=== PATIENT | male | born 1980 | race Hispanic/Latino ===

== ENCOUNTER 2020-12-17 08:25 | Outpatient (NON) | payer OTHER, SELFPAY ==
[2020-12-17 22:24] LABS: SARS-CoV-2 RNA PCR Negative
== END 2020-12-17 08:26 ==
LOC: ANHCOVIDDT 08:27
PROVIDERS: Visit Provider Physician Assistant
DX: B34.9 Viral infection, unspecified (principal); Z20.822 Contact with and (suspected) exposure to COVID-19
CPT/HCPCS: C9803; U0003; U0005

== ENCOUNTER 2023-04-07 16:15 | Emergency (ER) | payer OTHER, BC, SELFPAY ==
--- NOTE | ~2023-04-07 | CT_ITS ---
EXAMINATION: CT lumbar spine wo con DATE: 04/07/2023 18:43 INDICATION: Fall, low back pain . TECHNIQUE: Computed tomography (CT) of the lumbar spine was performed without intravenous contrast. A utomated exposure control and iterative reconstruction technique were employed. The dose-length produ ct was 1178.06 mGy-cm. COMPARISON: None. FINDINGS: 5 nonrib-bearing lumbar-type vertebral bodies. Pedicles intact. Normal vertebral body align ment. Vertebral body heights preserved. Disc spaces maintained. Normal facets and posterior elements. IMPRESSION: No acute fracture or traumatic malalignment in the lumbar spine. Reviewed, dictated and finalized at location K.
--- NOTE | ~2023-04-07 | CT_ITS ---
EXAMINATION: CT pelvis wo con DATE: 04/07/2023 18:43 INDICATION: Fall, sacral pain TECHNIQUE: Computed tomography (CT) of the pelvis was performed without intravenous contrast. Automat ed exposure control and iterative reconstruction technique were employed. The dose-length product was 696.03 mGy-cm. COMPARISON: CT abdomen pelvis 10/09/2018 FINDINGS: Normal mineralization. Multiple bone islands. Very subtle oblique fracture of the distal sa deon/sacrococcygeal junction with anterior cortical buckling versus callus. Given history of recent t rauma and pain and acute fracture is favored. No other fracture. No dislocation. Status post appendec andie. Enlarged prostate. IMPRESSION: Subtle, nondisplaced fracture of the distal sacrum/sacrococcygeal junction. Reviewed, dictated and finalized at location K.
[2023-04-07 16:59] VITALS: BP 128/77; PULSE 55; RESP 18; TEMP 36.6; O2SAT 100
--- NOTE | 2023-04-07 17:59 | ED.BACK ---
HPI - Back Pain/Injury General Chief Complaint: Back Pain/Injury <JOSE Avendaño Last Filed: 04/08/23 02:38> Stated Complaint: fall, back pain <JOSE Avendaño Last Filed: 04/08/23 02:38> Time Seen by Provider: 04/07/23 16:58 <JOSE Avendaño Last Filed: 04/08/23 02:38> History of Present Illness HPI Narrative: 42-year-old male reports for evaluation of low back pain x2 weeks after he had a mechanical fall 2 weeks ago. Patient states he was mowing the lawn and the grass was wet, he slipped and landed on his tailbone. He reports he has been taking Tylenol ibuprofen with some relief, however the pain has increasingly worsened over the past few days. He denies numbness, weakness or tingling of lower extremities, saddle anesthesia, fever, body aches or chills, IV drug use. Denies hitting his head, LOC, head pain or other injuries obtained during the fall. <JOSE Avendaño Last Filed: 04/08/23 02:38> Related Data Home Medications: Home Medications Medication Instructions Recorded Confirmed atorvastatin 20 mg tablet 11/20/19 metformin 500 mg tablet mg 11/20/19 <JSOE Avendaño Last Filed: 04/08/23 02:38> Allergies/Adverse Reactions: Allergies Allergy/AdvReac Type Severity Reaction Status Date / Time No Known Allergies Allergy Verified 11/20/19 13:49 <JOSE Avendaño Last Filed: 04/08/23 02:38> Review of Systems Review of Systems: CONSTITUTIONAL: Denies fever, chills EYES: Denies visual changes, redness, or discharge. ENT: Denies rhinorrhea, congestion, sore throat, or otalgia. CARDIOVASCULAR: Denies chest pain, palpitations, or edema. RESPIRATORY: Denies cough or dyspnea. GASTROINTESTINAL: Denies abdominal pain, nausea, vomiting, or diarrhea. GENITOURINARY: Denies dysuria or hematuria. SKIN: Denies rash or itching. MUSCULOSKELETAL: See HPI NEUROLOGIC: Denies headache, numbness, dizziness, or weakness. PSYCHIATRIC: Denies anxiety or depression. <Jennifer Abreu PA-C - Last Filed: 04/08/23 02:38> [facility] Past Medical History Medical History: Medical History Diabetes Hyperlipidemia <Jennifer Abreu PA-C - Last Filed: 04/08/23 02:38> Exam Narrative: GENERAL: Well-appearing, in no acute distress. Patient sitting in exam chair, pleasant and conversational. HEAD: Normocephalic NECK: Supple. No midline cervical spinous tenderness, step-offs or deformities. CHEST: No respiratory distress. Clear to auscultation, no adventitious breath sounds. HEART: Regular rate and rhythm. No murmur heard. Normal peripheral pulses. EXTREMITIES: Normal range of motion. No edema. No tenderness to bilateral lower extremities. Strength 5/5 to BLE. DP pulses 2+. Sensation intact bilaterally. No saddle anesthesia. Negative seated SLR bilaterally. BACK: Point midline tenderness to the lumbar and sacral spine. No paraspinous tenderness. No step-offs, deformities, ecchymosis or overlying skin changes. SKIN: Warm, dry, no rash. NEURO: No focal deficits. Alert and oriented x3. PSYCH: Normal mood and affect. <Jennifer Abreu PA-C - Last Filed: 04/08/23 02:38> Course AUDIO VISUAL AIDS DIRECTOR/PA Physician Supervision This is a was performed by both a physician and an APC. I performed all aspects of the MDM as documented w/ the following additions: 42-year-old presenting with tailbone pain after a fall. Found to have a nondisplaced fracture. Case was discussed with Neurosurgery and patient will be given outpatient follow-up. All questions answered. Patient in agreement w/ disposition. <Toi Goel MD - Last Filed: 04/17/23 21:12> Vital Signs Vital signs: Vital Signs Temperature 97.8 F 04/07/23 16:59 Pulse Rate 55 L 04/07/23 16:59 Respiratory Rate 18 04/07/23 16:59 Blood Pressure 128/77 04/07/23 16:59 Pulse Oximetry 100 04/07/23 16:59 Oxygen D
[2023-04-07] MEDS: HYDROcodone/acetaminophen (*CRX) 5-325 MG TABLET 1 TAB PO (18:06)
[2023-04-07] MEDS: CYCLOBENZAPRINE HCL 10 MG TABLET PO (18:07)
[2023-04-07 20:58] VITALS: BP 135/88; PULSE 80; RESP 20; O2SAT 100
== END 2023-04-07 20:59 | disposition home or self-care (01) ==
PROVIDERS: Emergency Provider Physician Assistant; PCP Physician Assistant
DX: S32.10XA Unspecified fracture of sacrum, initial encounter for closed fracture (principal); E78.5 Hyperlipidemia, unspecified; E11.9 Type 2 diabetes mellitus without complications; W01.0XXA Fall on same level from slipping, tripping and stumbling without subsequent striking against object, initial encounter; Y92.007 Garden or yard of unspecified non-institutional (private) residence as the place of occurrence of the external cause
CPT/HCPCS: 72131; 72192; 99284; A9270

== ENCOUNTER 2023-11-20 14:17 | Emergency (ER) | payer BC, SELFPAY ==
[2023-11-20 14:26] VITALS: BP 124/70; PULSE 65; RESP 16; TEMP 36.3; O2SAT 97
--- NOTE | 2023-11-20 14:58 | ED.URI ---
HPI - URI/Sore Throat General Chief Complaint: Upper Respiratory Infection Stated Complaint: cough,fever Time Seen by Provider: 11/20/23 14:58 Source: patient Mode of arrival: ambulatory Limitations: no limitations History of Present Illness HPI Narrative: 43-year-old male presents with for that of cough for 2 weeks. Reports short of breath after coughing. Fever last night. No shortness of breath at this time. Not taking any [id number] medications to treat his symptoms. All systems reviewed and negative except as noted above. Related Data Home Medications Medication Instructions Recorded Confirmed atorvastatin 20 mg tablet 11/20/19 metformin 500 mg tablet mg 11/20/19 lisinopril 10 mg tablet mg 11/20/23 11/20/23 Allergies Allergy/AdvReac Type Severity Reaction Status Date / Time No Known Allergies Allergy Verified 11/20/23 14:43 Review of Systems Review of Systems: CONSTITUTIONAL: Denies fever, chills, or sweats. EYES: Denies visual changes, redness, or discharge. ENT: Denies rhinorrhea, congestion, sore throat, or otalgia. CARDIOVASCULAR: Denies chest pain, palpitations, or edema. RESPIRATORY: Reports cough and dyspnea with coughing. GASTROINTESTINAL: Denies abdominal pain, nausea, vomiting, or diarrhea. GENITOURINARY: Denies dysuria or hematuria. SKIN: Denies rash or itching. MUSCULOSKELETAL: Denies back pain, joint pain, or myalgia. NEUROLOGIC: Denies headache, numbness, or weakness. PSYCHIATRIC: Denies anxiety or depression. All other systems reviewed are negative, except as documented in HPI. [facility] Past Medical History Medical History Diabetes Hyperlipidemia Comments At time of signature, agree with nursing past medical, surgical, social and family history. There is no relevant family history pertinent to the presenting complaint. Exam Narrative: GENERAL: This is a well-nourished, well-developed patient, in no apparent distress. HEAD: normocephalic, atraumatic. EYES: PERRL. Sclera clear/white. Vision is grossly intact. EARS: External ears normal, auditory canals clear and without drainage, TMs normal without perforation. Hearing grossly intact. NOSE: External nose normal with no obvious nasal discharge, nares without redness, no rhinorrhea. THROAT: Mucous membranes moist, posterior pharynx clear. NECK: Neck supple, non-tender without lymphadenopathy, masses or thyromegaly. CARDIOVASCULAR: Regular rate and rhythm without murmurs, gallops, or rubs. RESPIRATORY: Clear to auscultation. Breath sounds equal bilaterally. No wheezes, rales, or rhonchi. SKIN: warm, Dry, intact with no suspicious lesions or rash, good texture and turgor. NEURO: awake, alert, and oriented to person, place and time. There were no obvious focal neurologic abnormalities. EXTREMITIES: No joint tenderness, effusion, or edema noted. Course Course Level of Care: Express Care Visit Vital Signs Vital signs: Vital Signs Temperature 36.3 C L 11/20/23 14:26 Pulse Rate 65 11/20/23 14:26 Respiratory Rate 16 11/20/23 14:26 Blood Pressure 124/70 11/20/23 14:26 Pulse Oximetry 97 11/20/23 14:26 Oxygen Delivery Room Air 11/20/23 14:26 Temperature 36.3 C L 11/20/23 14:26 Pulse Rate 65 11/20/23 14:26 Respiratory Rate 16 11/20/23 14:26 Blood Pressure 124/70 11/20/23 14:26 Pulse Oximetry 97 11/20/23 14:26 Oxygen Delivery Room Air 11/20/23 14:26 reviewed MDM - URI/Sore Throat MDM Narrative Medical decision making narrative: Patient is aware of diagnosis, understands and agrees to treatment plan. Anticipatory guidance given. Patient agrees to follow-up as directed and is aware of reasons to seek care at the emergency department. Portions of this record may have been created with voice recognition software will treat with abx due to duration of symptoms. Discharge Plan Discharge Clinical Impression
== END 2023-11-20 15:07 | disposition home or self-care (01) ==
PROVIDERS: Emergency Provider Nurse Practitioner Family; PCP Physician Assistant
DX: R05.1 Acute cough (principal); E11.9 Type 2 diabetes mellitus without complications; E78.5 Hyperlipidemia, unspecified
CPT/HCPCS: 99213; G0463

== ENCOUNTER 2025-03-25 10:10 | Emergency (ER) | payer BC, SELFPAY ==
[2025-03-25 10:13] VITALS: BP 149/84; PULSE 59; RESP 18; TEMP 36.8; O2SAT 98
--- OUTSIDE RECORDS SUMMARY | 2025-03-25 11:18 | XMS_ITS | Data Portability ---
Author Organization JOSE MARTIN Hetal LOPES Address [address] [facility] [place] [address] Care Team Providers Care Associate Brand Manager Name Role Phone DIMITRI FAUSTIN Primary Care Provider Assessment Encounter Date Assessment Date Assessment LastModified by Organization Details LastModified Time 03/24/2024 03/24/2024 , [email or web address] Not availabl e 03/24/2024 14:56:26 Plan of Treatment Reminders Order Date Submit Date Provider Last Modified By Organization Details Last Modified Time Details Appointments ANY 15 2024 03:45P M CELIA CHANDRA Not available Not available Not available Lab CMP, serum or plasma 2023 024 ERIN SHAH, [address], [facility] [address], [place], [address], 11/28/2024 08:27:13 CBC w/ auto diff 2023 024 ERIN SHAH, [address], [address], [place], [address], 11/28/2024 08:27:15 lipid panel, serum 2023 024 ERIN SHAH, [address], [address], [place], [address], 11/28/2024 08:27:12 HbA1c (hemoglob in A1c), blood 2023 024 ERIN SHAH, [address], [address], [place], [address], 11/28/2024 08:27:14 PSA, total, serum or plasma 2023 024 ERIN [facility], [address], [address], [place], [address], 03/25/2024 13:10:47 lipid panel, serum 2023 024 ERIN [facility], [address], [address], [place], [address], 03/25/2024 13:10:45 CMP, serum or plasma 2023 024 ERIN [facility], [address], [address], [place], [address], 03/25/2024 13:10:45 albumin/c reatinine , mass ratio, urine 2023 024 ERIN [facility], [address], [address], [place], [address], 03/25/2024 13:10:44 HbA1c (hemoglob in A1c), blood 2023 024 ERIN [facility], [address], [address], [place], [address], 03/25/2024 13:10:46 HbA1c (hemoglob in A1c), blood 2022 023 [email or web address] In-Office Order, Internal Use Only DO Not Attach Compendium DO Not Attach Compendium, Do Not Delete/merge, [id number] 05/01/2023 15:12:26 lipid panel, serum 2022 023 ERIN [facility], [address], [address], [place], [address], 05/02/2023 16:16:26 CMP, serum or plasma 2022 023 ERIN [facility], [address], [address], [place], [address], 05/02/2023 16:16:27 albumin/c reatinine , mass ratio, urine 2022 023 [facility]IN [facility], [address], [address], [place], [address], 05/02/2023 16:16:25 HbA1c (hemoglob in A1c), blood 2021 022 [email or web address] In-Office Order, Internal Use Only DO Not Attach Compendium DO Not Attach Compendium, Do Not Delete/merge, [id number] 06/28/2022 15:09:50 hepatic function panel, serum 2021 022 ERIN [facility], [address], [address], [place], [address], 06/29/2022 14:10:42 hepatitis panel (A+B+C), acute, serum 2021 022 ERIN [facility], [address], [address], [place], [address], 06/29/2022 14:10:41 HIV 1 + 2, meaningfu l use set 2021 022 ERIN [facility], [address], [address], [place], [address], 06/29/2022 14:10:43 Referral gastroent erologist referral 2023 024 [email or web address] Gamal Felipe MD, [address] [facility] [address], [place], [address], 11/25/2024 17:19:10 diabetic ophthalmo logy referral 2022 023 [facility], [address], [place], [address], 07/19/2023 15:42:19 Procedures None recorded. Surgeries None recorded. Imaging None recorded. Medication Orders ibuprofen 800 mg tablet [address] [facility], [address] [place] [address], [id number], 11/25/2024 17:09:34 lisinopri l 10 mg tablet 2022 023 [facility], [address] [place] [address], [id number], 12/26/2023 16:33:09 metformin 500 mg tablet 2022 023 [facility], [address] [place] [address], [id number], 03/03/2024 16:42:40 atorvasta tin 20 mg tablet 2022 023 [facility], [address] [place] [address], [id number], 03/31/2024 16:39:00 metformin 500 mg tablet 2021 022 [facility], [address] [place] [address], [id number], 06/28/2022 15:01:16 lisinopri l 10 mg tablet 2021 022 [facility], [address] [place] [address], [id number], 06/28/2022 15:01:16 atorvasta tin 20 mg tablet 2021 022 [facility], [address] [place] [address], [id number], 06/28/2022 15:01:15 Patient TargetsNo targets recorded. Patient Instructions Encounter Date Encounter Id Patient Instructions Last Modified By Organization Details Last Modified Time 06/28/2022 [id number] A healthy lifestyle: care instructions [email or web address] Not available 06/28/2022 14:54:09 05/01/2023 [id number] tailbone injury: care instructions [email or web address] Not available 05/01/2023 15:12:26 03/24/2024 [id number] A healthy lifestyle: care instructions [email or web address] Not available 03/24/2024 12:26:31 11/25/2024 [id number] A healthy lifestyle: care instructions Not available 11/26/2024 11:51:46 Reason for Referral Diabetic Ophthalmology Refer ral for Diabetes mellitus Referring Physician: Dimitri Faustin Transcriptionist, Encounter Date: 05/01/2023 [employer] Therapist Referral for Screening for malignant neoplasm of colon Referring Physician: Dimitri Faustin Transcriptionist, Encounter Date: 11/25/2024 Results Created Date Observation Date Name Description Value Unit Range Abnormal Flag Note LastModifiedBy Organization Detail LastModifiedTime 06/28/20 22 06/28/2022 HAV, HBV, HCV interpretati on Commen t HBV Serol ogy Inter preta tion Chart ----- ----- ----- ----- ----- ----- ----- ----- ----- ----- ----- ----- ----- -- Inter preta tion HBsAg anti- HBs anti- HBc anti- HBc IgM ----- ----- ----- ----- ----- ----- ----- ----- ----- ----- ----- ----- ----- -- Dietrich - Cecilia te prese nt: + Cecilia te absen t: - Test not indic ated: TNI ----- ----- ----- ----- ----- ----- ----- ----- ----- ----- ----- ----- ----- -- Celestina ptibl e (baoe r infec caitlin and no evide nce - - - TNI of cristyi kinjal n) ----- ----- ----- ----- ----- ----- ----- ----- ----- ----- ----- ----- ----- -- Immun e due to natur al resol tori infec tion - + + TNI ----- ----- ----- ----- ----- ----- ----- ----- ----- ----- ----- ----- ----- -- Immun e due to vacci natio n - + - TNI ----- ----- ----- ----- ----- ----- ----- ----- ----- ----- ----- ----- ----- -- Acute Infec tion + - + + ----- ----- ----- ----- ----- ----- ----- ----- ----- ----- ----- ----- ----- -- Chron ic infec tion + - + - ----- ----- ----- ----- ----- ----- ----- ----- ----- ----- ----- ----- ----- -- Inter preta tion uncle ar* - - + +/- ----- ----- ----- ----- ----- ----- ----- ----- ----- ----- ----- ----- ----- -- *Mult iple possi bilit ies: resol tori infec tion (most commo n); false - posit geraldine anti- HBc ([facility] eptib le); low- level chron ic infec tion ; resol ving acute infec tion. Not Available [facility] ([facility]) [address] [place], [address], 06/29/2022 14:10:41 06/28/20 22 06/29/2022 HAV, HBV, HCV hep A Ab, total Positi ve negati ve abnormal Not Available [facility] ([facility]) [address] [place], [address], 06/29/2022 14:10:41 06/28/20 22 06/29/2022 HAV, HBV, HCV hep A Ab, IgM Negati ve negati ve Not Available [facility] ([facility]) [address] [place], [address], 06/29/2022 14:10:41 06/28/20 22 06/29/2022 HAV, HBV, HCV HBsAg screen Negati ve negati ve Not Available [facility] ([facility]) [address] [place], [address], 06/29/2022 14:10:41 06/28/20 22 06/29/2022 HAV, HBV, HCV hep B surface Ab, qual Non Reacti ve Non React geraldine: Incon siste nt with immun ity, less than 10 mIU/m L React geraldine: Consi stent with immun ity, great er than 9.9 mIU/m L Not Available [facility] ([facility]) [address] [place], [address], 06/29/2022 14:10:41 06/28/20 22 06/29/2022 HAV, HBV, HCV hep B core Ab, tot Negati ve negati ve Not Available [facility] ([facility]) [address] [facility], [place], [address], 06/29/2022 14:10:41 06/28/20 22 06/29/2022 HAV, HBV, HCV rfx to hbc IgM Commen t Refle x crite todd was not met. Not Available [facility] ([facility]) [address] [facility], [place], [address], 06/29/2022 14:10:41 06/28/20 22 06/29/2022 HAV, HBV, HCV HCV Ab <0.1 s/co_ ratio 0.0-0. 9 Not Available [facility] ([facility]) [address] [facility], [place], [address], 06/29/2022 14:10:41 06/28/20 22 06/29/2022 HAV, HBV, HCV interpretati on: Commen t Negat geraldine Not infec caitlin with HCV, unles s recen t infec tion is suspe cted or other evide nce exist s to indic ate HCV infec tion. Not Available [facility] ([facility]) [address] [facility], [place], [address], 06/29/2022 14:10:41 06/28/20 22 06/29/2022 HEPAT IC FUNCT ION PANEL (7) protein, total 7.2 g/dL 6.0-8. 5 Not Available [facility] ([facility]) [address] [place], [address], 06/29/2022 14:10:42 06/28/20 22 06/29/2022 HEPAT IC FUNCT ION PANEL (7) albumin 4.7 g/dL 4.0-5. 0 Not Available [facility] ([facility]) [address] [place], [address], 06/29/2022 14:10:42 06/28/20 22 06/29/2022 HEPAT IC FUNCT ION PANEL (7) bilirubin, total 0.6 mg/dL 0.0-1. 2 Not Available [facility] ([facility]) [address] [place], [address], 06/29/2022 14:10:42 06/28/20 22 06/29/2022 HEPAT IC FUNCT ION PANEL (7) bilirubin, direct 0.16 mg/dL 0.00-0 .40 Not Available [facility] ([facility]) [address] [place], [address], 06/29/2022 14:10:42 06/28/20 22 06/29/2022 HEPAT IC FUNCT ION PANEL (7) alkaline phosphatase 94 IU/L 44-121 Not Available [facility] ([facility]) [address] [place], [address], 06/29/2022 14:10:42 06/28/20 22 06/29/2022 HEPAT IC FUNCT ION PANEL (7) AST (SGOT) 37 IU/L 0-40 Not Available [facility] ([facility]) [address] [place], [address], 06/29/2022 14:10:42 06/28/20 22 06/29/2022 HEPAT IC FUNCT ION PANEL (7) ALT (SGPT) 80 IU/L 0-44 above high normal Not Available [facility] ([facility]) [address] [place], [address], 06/29/2022 14:10:42 06/28/20 22 06/29/2022 HIV AB/P2 4 AG WITH REFLE X HIV Ab/P24 Ag screen Non Reacti ve non reacti ve HIV Negat geraldine HIV-1 /HIV- 2 antib odies and HIV-1 p24 antig en were NOT detec caitlin. There is no labor atory evide nce of HIV infec tion. Not Available [facility] ([facility]) [address] [place], [address], 06/29/2022 14:10:43 06/28/20 22 06/28/2022 HbA1c (hemo globi n A1c), blood HbA1c 7.2% Not Available In-Office Order Internal Use Only DO Not Attach Compendium DO Not Attach Compendium, Do Not Delete/merge, [id number] 06/28/2022 14:35:05 05/01/20 23 05/02/2023 ALBUM IN/CR EATIN INE RATIO ,URIN E creatinine, urine - mg/dL Test not perfo rmed. No urine speci men recei tori. Not Available [facility] ([facility]) [address] [place], [address], 05/02/2023 16:16:25 05/01/20 23 05/02/2023 ALBUM IN/CR EATIN INE RATIO ,URIN E albumin, urine - Test not perfo rmed Not Available [facility] ([facility]) [address] [place], [address], 05/02/2023 16:16:25 05/01/20 23 05/02/2023 LIPID PANEL cholesterol, total 170 mg/dL 100-19 9 Not Available [facility] ([facility]) [address] [place], [address], 05/02/2023 16:16:26 05/01/20 23 05/02/2023 LIPID PANEL triglyceride s 417 mg/dL 0-149 above high normal Not Available [facility] ([facility]) [address] [place], [address], 05/02/2023 16:16:26 05/01/20 23 05/02/2023 LIPID PANEL HDL cholesterol 36 mg/dL >39 below low normal Not Available [facility] ([facility]) [address] [place], [address], 05/02/2023 16:16:26 05/01/20 23 05/02/2023 LIPID PANEL VLDL cholesterol amrit 65 mg/dL 5-40 above high normal Not Available [facility] ([facility]) [address] [place], [address], 05/02/2023 16:16:26 05/01/20 23 05/02/2023 LIPID PANEL LDL chol calc ([facility]) 69 mg/dL 0-99 Not Available [facility] ([facility]) [address] [place], [address], 05/02/2023 16:16:26 05/01/20 23 05/02/2023 COMP. METAB OLIC PANEL (14) glucose 199 mg/dL 70-99 above high normal Not Available [facility] ([facility]) [address] [place], [address], 05/02/2023 16:16:27 05/01/20 23 05/02/2023 COMP. METAB OLIC PANEL (14) BUN 17 mg/dL 6-24 Not Available [facility] ([facility]) [address] [place], [address], 05/02/2023 16:16:27 05/01/20 23 05/02/2023 COMP. METAB OLIC PANEL (14) creatinine 0.46 mg/dL 0.76-1 .27 below low normal Not Available [facility] ([facility]) [address] [place], [address], 05/02/2023 16:16:27 05/01/20 23 05/02/2023 COMP. METAB OLIC PANEL (14) eGFR 133 mL/mi n/1.7 3 >59 Not Available [facility] ([facility]) [address] [place], [address], 05/02/2023 16:16:27 05/01/20 23 05/02/2023 COMP. METAB OLIC PANEL (14) BUN/creatini ne ratio 37 9-20 above high normal Not Available [facility] ([facility]) [address] [place], [address], 05/02/2023 16:16:27 05/01/20 23 05/02/2023 COMP. METAB OLIC PANEL (14) sodium 138 mmol/ L 134-14 4 Not Available [facility] ([facility]) [address] [facility] [place], [address], 05/02/2023 16:16:27 05/01/20 23 05/02/2023 COMP. METAB OLIC PANEL (14) potassium 4.3 mmol/ L 3.5-5. 2 Not Available [facility] ([facility]) [address] [facility] [place], [address], 05/02/2023 16:16:27 05/01/20 23 05/02/2023 COMP. METAB OLIC PANEL (14) chloride 102 mmol/ L 96-106 Not Available [facility] ([facility]) [address] [facility] [place], [address], 05/02/2023 16:16:27 05/01/20 23 05/02/2023 COMP. METAB OLIC PANEL (14) carbon dioxide, total 19 mmol/ L 20-29 below low normal Not Available [facility] ([facility]) [address] [facility] [place], [address], 05/02/2023 16:16:27 05/01/20 23 05/02/2023 COMP. METAB OLIC PANEL (14) calcium 9.4 mg/dL 8.7-10 .2 Not Available [facility] ([facility]) [address] [facility] [place], [address], 05/02/2023 16:16:27 05/01/20 23 05/02/2023 COMP. METAB OLIC PANEL (14) protein, total 7.0 g/dL 6.0-8. 5 Not Available [facility] ([facility]) [address] [facility] [place], [address], 05/02/2023 16:16:27 05/01/20 23 05/02/2023 COMP. METAB OLIC PANEL (14) albumin 4.5 g/dL 4.0-5. 0 Not Available [facility] ([facility]) [address] [facility], [place], [address], 05/02/2023 16:16:27 05/01/20 23 05/02/2023 COMP. METAB OLIC PANEL (14) globulin, total 2.5 g/dL 1.5-4. 5 Not Available [facility] ([facility]) [address] [facility], [place], [address], 05/02/2023 16:16:27 05/01/20 23 05/02/2023 COMP. METAB OLIC PANEL (14) A/G ratio 1.8 1.2-2. 2 Not Available [facility] ([facility]) [address] [facility], [place], [address], 05/02/2023 16:16:27 05/01/20 23 05/02/2023 COMP. METAB OLIC PANEL (14) bilirubin, total 0.4 mg/dL 0.0-1. 2 Not Available [facility] ([facility]) [address] [facility], [place], [address], 05/02/2023 16:16:27 05/01/20 23 05/02/2023 COMP. METAB OLIC PANEL (14) alkaline phosphatase 96 IU/L 44-121 Not Available [facility] ([facility]) [address] [facility], [place], [address], 05/02/2023 16:16:27 05/01/20 23 05/02/2023 COMP. METAB OLIC PANEL (14) AST (SGOT) 18 IU/L 0-40 Not Available [facility] ([facility]) [address] [facility], [place], [address], 05/02/2023 16:16:27 05/01/20 23 05/02/2023 COMP. METAB OLIC PANEL (14) ALT (SGPT) 27 IU/L 0-44 Not Available [facility] ([facility]) [address] [facility], [place], [address], 05/02/2023 16:16:27 05/01/20 23 05/02/2023 SPECI MEN STATU S REPOR T specimen status report TNP Test not perfo rmed. No urine speci men recei tori. TEST: [id number] Album in/Cr eatin ine Ratio ,Urin e Not Available [facility] ([facility]) [address] [facility], [place], [address], 05/02/2023 16:16:25 05/01/20 23 05/01/2023 HbA1c (hemo globi n A1c), blood HbA1c 7.2% Not Available In-Office Order Internal Use Only DO Not Attach Compendium DO Not Attach Compendium, Do Not Delete/merge, [id number] 05/01/2023 14:53:47 03/24/20 24 03/25/2024 ALBUM IN/CR EATIN INE RATIO ,URIN E creatinine, urine 153.8 mg/dL notest ab. Not Available [facility] ([facility]) [address] [facility], [place], [address], 03/25/2024 13:10:44 03/24/20 24 03/25/2024 ALBUM IN/CR EATIN INE RATIO ,URIN E albumin, urine 12.6 ug/mL notest ab. Not Available [facility] ([facility]) [address] [facility], [place], [address], 03/25/2024 13:10:44 03/24/20 24 03/25/2024 ALBUM IN/CR EATIN INE RATIO ,URIN E alb/creat ratio 8 mg/g_ creat 0-29 Salma l: 0 - 29 Moder ately incre ased: 30 - 300 Sever jackson incre ased: >300 Not Available [facility] ([facility]) [address] [facility], [place], [address], 03/25/2024 13:10:44 03/24/20 24 03/25/2024 LIPID PANEL cholesterol, total 132 mg/dL 100-19 9 Not Available [facility] ([facility]) [address] [place], [address], 03/25/2024 13:10:45 03/24/20 24 03/25/2024 LIPID PANEL triglyceride s 114 mg/dL 0-149 Not Available [facility] ([facility]) [address] [place], [address], 03/25/2024 13:10:45 03/24/20 24 03/25/2024 LIPID PANEL HDL cholesterol 40 mg/dL >39 Not Available [facility] ([facility]) [address] [place], [address], 03/25/2024 13:10:45 03/24/20 24 03/25/2024 LIPID PANEL VLDL cholesterol amrit 21 mg/dL 5-40 Not Available [facility] ([facility]) [address] [place], [address], 03/25/2024 13:10:45 03/24/20 24 03/25/2024 LIPID PANEL LDL chol calc ([facility]) 71 mg/dL 0-99 Not Available [facility] ([facility]) [address] [place], [address], 03/25/2024 13:10:45 03/24/20 24 03/25/2024 COMP. METAB OLIC PANEL (14) glucose 147 mg/dL 70-99 above high normal Not Available [facility] ([facility]) [address] [place], [address], 03/25/2024 13:10:45 03/24/20 24 03/25/2024 COMP. METAB OLIC PANEL (14) BUN 11 mg/dL 6-24 Not Available [facility] ([facility]) [address] [place], [address], 03/25/2024 13:10:45 03/24/20 24 03/25/2024 COMP. METAB OLIC PANEL (14) creatinine 0.76 mg/dL 0.76-1 .27 Not Available [facility] ([facility]) [address] [facility], [place], [address], 03/25/2024 13:10:45 03/24/20 24 03/25/2024 COMP. METAB OLIC PANEL (14) eGFR 114 mL/mi n/1.7 3 >59 Not Available [facility] ([facility]) [address] [facility], [place], [address], 03/25/2024 13:10:45 03/24/20 24 03/25/2024 COMP. METAB OLIC PANEL (14) BUN/creatini ne ratio 14 9-20 Not Available [facility] ([facility]) [address] [facility], [place], [address], 03/25/2024 13:10:45 03/24/20 24 03/25/2024 COMP. METAB OLIC PANEL (14) sodium 138 mmol/ L 134-14 4 Not Available [facility] ([facility]) [address] [facility], [place], [address], 03/25/2024 13:10:45 03/24/20 24 03/25/2024 COMP. METAB OLIC PANEL (14) potassium 4.5 mmol/ L 3.5-5. 2 Not Available [facility] ([facility]) [address] [facility], [place], [address], 03/25/2024 13:10:45 03/24/20 24 03/25/2024 COMP. METAB OLIC PANEL (14) chloride 103 mmol/ L 96-106 Not Available [facility] ([facility]) [address] [facility], [place], [address], 03/25/2024 13:10:45 03/24/20 24 03/25/2024 COMP. METAB OLIC PANEL (14) carbon dioxide, total 22 mmol/ L Not Available [facility] ([facility]) [address] [facility], [place], [address], 03/25/2024 13:10:45 03/24/20 24 03/25/2024 COMP. METAB OLIC PANEL (14) calcium 9.4 mg/dL 8.7-10 .2 Not Available [facility] ([facility]) [address] [facility], [place], [address], 03/25/2024 13:10:45 03/24/20 24 03/25/2024 COMP. METAB OLIC PANEL (14) protein, total 7.2 g/dL 6.0-8. 5 Not Available [facility] ([facility]) [address] [facility], [place], [address], 03/25/2024 13:10:45 03/24/20 24 03/25/2024 COMP. METAB OLIC PANEL (14) albumin 4.5 g/dL 4.1-5. 1 Not Available [facility] ([facility]) [address] [facility], [place], [address], 03/25/2024 13:10:45 03/24/20 24 03/25/2024 COMP. METAB OLIC PANEL (14) globulin, total 2.7 g/dL 1.5-4. 5 Not Available [facility] ([facility]) [address] [place], [address], 03/25/2024 13:10:45 03/24/20 24 03/25/2024 COMP. METAB OLIC PANEL (14) A/G ratio 1.7 1.2-2. 2 Not Available [facility] ([facility]) [address] [facility], [place], [address], 03/25/2024 13:10:45 03/24/20 24 03/25/2024 COMP. METAB OLIC PANEL (14) bilirubin, total 1.0 mg/dL 0.0-1. 2 Not Available [facility] ([facility]) [address] [place], [address], 03/25/2024 13:10:45 03/24/20 24 03/25/2024 COMP. METAB OLIC PANEL (14) alkaline phosphatase 103 IU/L 44-121 Not Available [facility] ([facility]) [address] [place], [address], 03/25/2024 13:10:45 03/24/20 24 03/25/2024 COMP. METAB OLIC PANEL (14) AST (SGOT) 18 IU/L 0-40 Not Available [facility] ([facility]) [address] [place], [address], 03/25/2024 13:10:45 03/24/20 24 03/25/2024 COMP. METAB OLIC PANEL (14) ALT (SGPT) 29 IU/L 0-44 Not Available [facility] ([facility]) [address] [place], [address], 03/25/2024 13:10:45 03/24/20 24 03/25/2024 HEMOG LOBIN A1C hemoglobin A1C 7.7 % 4.8-5. 6 above high normal Predi abete s: 5.7 - 6.4 Diabe calos: >6.4 Glyce tim contr ol for adult s with diabe calos: <7.0 Not Available [facility] ([facility]) [address] [place], [address], 03/25/2024 13:10:46 03/24/20 24 03/25/2024 PROST ATE-S PECIF IC AG prostate specific Ag 0.3 NG/mL 0.0-4. 0 Isma ECLIA metho dolog y. Accor ding to the Ameri can [employer] iatio n, Serum PSA shoul d decre ase and remai n at undet ectab le level s after radic al prost atect francesco. The AUA defin es bioch emica l recur rence as an initi al PSA value 0.2 ng/mL or great er follo wed by a subse quent confi rmato ry PSA value 0.2 ng/mL or great er. Value s obtai sofi with diffe rent assay metho ds or kits canno t be used inter cano eably . Resul ts canno t be inter prete d as absol casimiro evide nce of the prese nce or absen ce of [facility]. Not Available [facility] ([facility]) [address] [place], [address], 03/25/2024 13:10:47 11/25/20 24 11/28/2024 LIPID PANEL cholesterol, total 182 mg/dL 100-19 9 Not Available [facility] ([facility]) [address] [place], [address], 11/28/2024 08:27:12 11/25/20 24 11/28/2024 LIPID PANEL triglyceride s 274 mg/dL 0-149 above high normal Not Available [facility] ([facility]) [address] [place], [address], 11/28/2024 08:27:12 11/25/20 24 11/28/2024 LIPID PANEL HDL cholesterol 39 mg/dL >39 below low normal Not Available [facility] ([facility]) [address] [place], [address], 11/28/2024 08:27:12 11/25/20 24 11/28/2024 LIPID PANEL VLDL cholesterol amrit 46 mg/dL 5-40 above high normal Not Available [facility] ([facility]) [address] [place], [address], 11/28/2024 08:27:12 11/25/20 24 11/28/2024 LIPID PANEL LDL chol calc ([facility]) 97 mg/dL 0-99 Not Available [facility] ([facility]) [address] [facility] [place], [address], 11/28/2024 08:27:12 11/25/20 24 11/28/2024 COMP. METAB OLIC PANEL (14) glucose 165 mg/dL 70-99 above high normal Not Available [facility] ([facility]) [address] [facility] [place], [address], 11/28/2024 08:27:13 11/25/20 24 11/28/2024 COMP. METAB OLIC PANEL (14) BUN 12 mg/dL 6-24 Not Available [facility] ([facility]) [address] [facility] [place], [address], 11/28/2024 08:27:13 11/25/20 24 11/28/2024 COMP. METAB OLIC PANEL (14) creatinine 0.76 mg/dL 0.76-1 .27 Not Available [facility] ([facility]) [address] [facility] [place], [address], 11/28/2024 08:27:13 11/25/20 24 11/28/2024 COMP. METAB OLIC PANEL (14) eGFR 113 mL/mi n/1.7 3 >59 Not Available [facility] ([facility]) [address] [facility] [place], [address], 11/28/2024 08:27:13 11/25/20 24 11/28/2024 COMP. METAB OLIC PANEL (14) BUN/creatini ne ratio 16 9-20 Not Available [facility] ([facility]) [address] [facility] [place], [address], 11/28/2024 08:27:13 11/25/20 24 11/28/2024 COMP. METAB OLIC PANEL (14) sodium 138 mmol/ L 134-14 4 Not Available [facility] ([facility]) [address] [facility] [place], [address], 11/28/2024 08:27:13 11/25/20 24 11/28/2024 COMP. METAB OLIC PANEL (14) potassium 4.4 mmol/ L 3.5-5. 2 Not Available [facility] ([facility]) [address] [facility], [place], [address], 11/28/2024 08:27:13 11/25/20 24 11/28/2024 COMP. METAB OLIC PANEL (14) chloride 101 mmol/ L 96-106 Not Available [facility] ([facility]) [address] [facility], [place], [address], 11/28/2024 08:27:13 11/25/20 24 11/28/2024 COMP. METAB OLIC PANEL (14) carbon dioxide, total 22 mmol/ L 20-29 Not Available [facility] ([facility]) [address] [facility], [place], [address], 11/28/2024 08:27:13 11/25/20 24 11/28/2024 COMP. METAB OLIC PANEL (14) calcium 9.3 mg/dL 8.7-10 .2 Not Available [facility] ([facility]) [address] [facility], [place], [address], 11/28/2024 08:27:13 11/25/20 24 11/28/2024 COMP. METAB OLIC PANEL (14) protein, total 7.2 g/dL 6.0-8. 5 Not Available [facility] ([facility]) [address] [facility], [place], [address], 11/28/2024 08:27:13 11/25/20 24 11/28/2024 COMP. METAB OLIC PANEL (14) albumin 4.5 g/dL 4.1-5. 1 Not Available [facility] ([facility]) [address] [facility], [place], [address], 11/28/2024 08:27:13 11/25/20 24 11/28/2024 COMP. METAB OLIC PANEL (14) globulin, total 2.7 g/dL 1.5-4. 5 Not Available [facility] ([facility]) [address] [facility] [place], [address], 11/28/2024 08:27:13 11/25/20 24 11/28/2024 COMP. METAB OLIC PANEL (14) bilirubin, total 0.5 mg/dL 0.0-1. 2 Not Available [facility] ([facility]) [address] [facility] [place], [address], 11/28/2024 08:27:13 11/25/20 24 11/28/2024 COMP. METAB OLIC PANEL (14) alkaline phosphatase 116 IU/L 44-121 Not Available [facility] ([facility]) [address] [facility] [place], [address], 11/28/2024 08:27:13 11/25/20 24 11/28/2024 COMP. METAB OLIC PANEL (14) AST (SGOT) 17 IU/L 0-40 Not Available [facility] ([facility]) [address] [facility] [place], [address], 11/28/2024 08:27:13 11/25/20 24 11/28/2024 COMP. METAB OLIC PANEL (14) ALT (SGPT) 22 IU/L 0-44 Not Available [facility] ([facility]) [address] [place], [address], 11/28/2024 08:27:13 11/25/20 24 11/28/2024 HEMOG LOBIN A1C hemoglobin A1C 7.8 % 4.8-5. 6 above high normal Predi abete s: 5.7 - 6.4 Diabe calos: >6.4 Glyce tim contr ol for adult s with diabe calos: <7.0 Not Available [facility] ([facility]) [address] [facility] [place], [address], 11/28/2024 08:27:14 11/25/20 24 11/28/2024 CBC WITH DIFFE RENTI AL/PL ATELE T WBC 7.9 x10e3 /uL 3.4-10 .8 Not Available [facility] ([facility]) [address] [facility], [place], [address], 11/28/2024 08:27:15 11/25/20 24 11/28/2024 CBC WITH DIFFE RENTI AL/PL ATELE T RBC 5.06 x10e6 /uL 4.14-5 .80 Not Available [facility] ([facility]) [address] [facility], [place], [address], 11/28/2024 08:27:15 11/25/20 24 11/28/2024 CBC WITH DIFFE RENTI AL/PL ATELE T hemoglobin 15.7 g/dL 13.0-1 7.7 Not Available [facility] ([facility]) [address] [facility], [place], [address], 11/28/2024 08:27:15 11/25/20 24 11/28/2024 CBC WITH DIFFE RENTI AL/PL ATELE T hematocrit 45.9 % 37.5-5 1.0 Not Available [facility] ([facility]) [address] [place], [address], 11/28/2024 08:27:15 11/25/20 24 11/28/2024 CBC WITH DIFFE RENTI AL/PL ATELE T MCV 91 fL 79-97 Not Available [facility] ([facility]) [address] [place], [address], 11/28/2024 08:27:15 11/25/2011/28/2024 CBC WITH DIFFE RENTI AL/PL ATELE T MCH 31.0 pg 26.6-3 3.0 Not Available [facility] ([facility]) [address] [place], [address], 11/28/2024 08:27:15 11/25/20 24 11/28/2024 CBC WITH DIFFE RENTI AL/PL ATELE T MCHC 34.2 g/dL 31.5-3 5.7 Not Available [facility] ([facility]) [address] [facility], [place], [address], 11/28/2024 08:27:15 11/25/20 24 11/28/2024 CBC WITH DIFFE RENTI AL/PL ATELE T RDW 12.0 % 11.6-1 5.4 Not Available [facility] ([facility]) [address] [facility], [place], [address], 11/28/2024 08:27:15 11/25/20 24 11/28/2024 CBC WITH DIFFE RENTI AL/PL ATELE T platelets 261 x10e3 /uL 150-45 0 Not Available [facility] ([facility]) [address] [facility], [place], [address], 11/28/2024 08:27:15 11/25/20 24 11/28/2024 CBC WITH DIFFE RENTI AL/PL ATELE T neutrophils 53 % notest ab. Not Available [facility] ([facility]) [address] [facility], [place], [address], 11/28/2024 08:27:15 11/25/20 24 11/28/2024 CBC WITH DIFFE RENTI AL/PL ATELE T lymphs 34 % notest ab. Not Available [facility] ([facility]) [address] [facility], [place], [address], 11/28/2024 08:27:15 11/25/20 24 11/28/2024 CBC WITH DIFFE RENTI AL/PL ATELE T monocytes 8 % notest ab. Not Available [facility] ([facility]) [address] [facility], [place], [address], 11/28/2024 08:27:15 11/25/20 24 11/28/2024 CBC WITH DIFFE RENTI AL/PL ATELE T eos 4 % notest ab. Not Available [facility] ([facility]) [address] [facility], [place], [address], 11/28/2024 08:27:15 11/25/20 24 11/28/2024 CBC WITH DIFFE RENTI AL/PL ATELE T basos 1 % notest ab. Not Available [facility] ([facility]) [address] [facility], [place], [address], 11/28/2024 08:27:15 11/25/20 24 11/28/2024 CBC WITH DIFFE RENTI AL/PL ATELE T neutrophils (absolute) 4.2 x10e3 /uL 1.4-7. 0 Not Available [facility] ([facility]) [address] [facility], [place], [address], 11/28/2024 08:27:15 11/25/20 24 11/28/2024 CBC WITH DIFFE RENTI AL/PL ATELE T lymphs (absolute) 2.7 x10e3 /uL 0.7-3. 1 Not Available [facility] ([facility]) [address] [facility], [place], [address], 11/28/2024 08:27:15 11/25/20 24 11/28/2024 CBC WITH DIFFE RENTI AL/PL ATELE T monocytes(ab solute) 0.6 x10e3 /uL 0.1-0. 9 Not Available [facility] ([facility]) [address] [place], [address], 11/28/2024 08:27:15 11/25/20 24 11/28/2024 CBC WITH DIFFE RENTI AL/PL ATELE T eos (absolute) 0.4 x10e3 /uL 0.0-0. 4 Not Available [facility] ([facility]) [address] [facility], [place], [address], 11/28/2024 08:27:15 11/25/20 24 11/28/2024 CBC WITH DIFFE RENTI AL/PL ATELE T baso (absolute) 0.0 x10e3 /uL 0.0-0. 2 Not Available [facility] ([facility]) [address] [facility], [place], [address], 11/28/2024 08:27:15 11/25/20 24 11/28/2024 CBC WITH DIFFE RENTI AL/PL ATELE T immature granulocytes 0 % notest ab. Not Available [facility] ([facility]) [address] [facility], [place], [address], 11/28/2024 08:27:15 11/25/20 24 11/28/2024 CBC WITH DIFFE RENTI AL/PL ATELE T immature grans (abs) 0.0 x10e3 /uL 0.0-0. 1 Not Available [facility] ([facility]) [address] [facility], [place], [address], 11/28/2024 08:27:15 04/07/20 23 04/07/2023 lab* No observ ation record ed. [address], [address], 04/09/2023 09:09:06 04/07/20 23 04/07/2023 lab* No observ ation record ed. [address], [address], 04/09/2023 09:09:01 06/23/20 24 06/23/2024 CT, cervi amrit spine , w/o contr ast No observ ation record ed. [address] [place], [address], 06/23/2024 17:27:11 06/23/20 24 06/23/2024 CT, lumba r spine , w/o contr ast No observ ation record ed. [address] [place], [address], 06/23/2024 12:08:00 06/23/20 24 06/23/2024 CT, head, w/o contr ast No observ ation record ed. [address] [place], [address], 06/23/2024 12:08:01 06/23/20 24 06/23/2024 CT, chest , w/o contr ast No observ ation record ed. [address] [place], [address], 06/23/2024 17:27:11 Result Notes None recorded. Problems Name Problem SNOMED Code Status Onset Date Resolution Date Notes Provider Name and Address Organization Details Recorded Time Diabetes mellitus 26667883 Active 2018 Not Available [facility] 02:33:00 Body mass index 30+ - obesity 371820696 Active 2020 Not Available [facility] 02:33:00 Hyperlipid emia 24015553 Active 2020 Not Available [facility] 02:33:00 Essential hypertensi on 57714316 Active 2020 Not Available [facility] 02:33:00 Obesity 960290258 Active 2023 CELIA CHANDRA Attn: Accounting ,[address] [place], [address] , [facility] - [facility] 4 16:32:58 Urinary incontinen ce 794517241 Completed 10/09/2019 Ceasar irwin [place] - [facility] 9 10:14:41 Morbid obesity 735887619 Active Not Available [facility] 02:33:00 Left sided abdominal pain 143306076 Completed 10/09/2019 Ceasar irwin [place] - [facility] 9 10:14:39 Problem Notes None recorded. Procedures Surgical History Date Name Laterality Status Provider Name and Address Organization Details Recorded Time Wrist arthroscopy/surge ry completed DIANA Mendoza - [facility] 02/15/2017 16:46:15 Appendectomy completed Roly Karimi MA [facility] 02/15/2017 16:46:23 Imaging Results Imaging Date Name Status LastModified by Organiz ation Details LastModified Time 04/07/2023 lab* completed [email or web address] [address], [place], [address], 04/09/2023 09:09:06 04/07/2023 lab* completed [email or web address] [address], [place], [address], 04/09/2023 09:09:01 06/23/2024 CT, cervical spine, w/o contrast completed [address] [place], [address], 06/23/2024 17:27:11 06/23/2024 CT, lumbar spine, w/o contrast completed [address] [place], [address], 06/23/2024 12:08:00 06/23/2024 CT, head, w/o contrast completed [address] [place], [address], 06/23/2024 12:08:01 06/23/2024 CT, chest, w/o contrast completed [address] [place], [address], 06/23/2024 17:27:11 Procedure Notes None recorded. Medical Equipment None Reported. Allergies No known drug allergies Medications Name Sig Start Date Stop Date Status Note LastModified by Organization Details LastModified Time Prescript ion - New 08/16 completed Not Available Not Available Not Available cyclobenz aprine 10 mg tablet TAKE 1 TABLET BY MOUTH EVERY 8 HOURS. 11/25 completed Not Available Not Available Not Available amoxicill in 500 mg capsule TAKE ONE CAPSULE BY MOUTH EVERY TWELVE HOURS FOR 10 DAYS 06/28 completed Not Available Not Available Not Available Flomax 0.4 mg capsule Take 1 capsule every day by oral route at bedtime for 30 days. 02/15 completed Not Available Not Available Not Available metformin 500 mg tablet TAKE TWO TABLETS BY MOUTH TWICE DAILY EVERY MORNING & EVENING WITH FOOD FOR DIABETES active Not Available Not Available No t Available atorvasta tin 20 mg tablet TAKE ONE TABLET BY MOUTH EVERY EVENING TO LOWER CHOLESTE ROL 2024 active Not Available Not Available Not Avai lable azithromy joe 250 mg tablet 03/25 completed Not Available Not Available Not Available ibuprofen 800 mg tablet Take 1 tablet twice a day by oral route as needed for 30 days. 11/25 completed Not Available Not Available Not Available ofloxacin 0.3 % eye drops INSTILL 2 DROPS INTO THE RIGHT EYE FOUR TIMES DAILY FOR 7 DAYS active Not Available Not Available No t Available amoxicill in 500 mg tablet Take 1 tablet every 12 hours by oral route for 10 days. 06/28 completed Not Available Not Available Not Available ondansetr on 8 mg disintegr ating tablet DISSOLVE 1 TABLET ON THE TONGUE THREE TIMES DAILY NEEDED 11/25 completed Not Available Not Available Not Available Zofran 4 mg tablet Take 2 tablets every 6 hours by oral route as needed. 08/16 completed Not Available Not Available Not Available terbinafi ne HCl 250 mg tablet Take 1 tablet every day by oral route for 90 days. 09/29 completed Not Available Not Available Not Available amoxicill in 875 mg tablet TAKE ONE TABLET BY MOUTH TWICE DAILY UNTIL GONE 11/25 completed Not Available Not Available Not Available cephalexi n 500 mg capsule Take 1 capsule every 8 hours by oral route for 5 days. 05/17 completed Not Available Not Available Not Available lisinopri l 10 mg tablet TAKE ONE TABLET BY MOUTH EVERY DAY IN THE MORNING FOR BLOOD PRESSURE active Not Available Not Available No t Available lisinopri l 10 mg-hydroc hlorothia zide 12.5 mg tablet TK 1 T PO QD 11/23 completed Not Available Not Available Not Available hydrocodo ne 10 mg-chlorp heniramin e 8 mg/5 mL oral susp extend.re l 12hr active Not Available Not Available Not Available oxybutyni n chloride 5 mg tablet Take 1 tablet twice a day by oral route for 30 days. 02/15 completed Not Available Not Available Not Available brompheni ramine-ps eudoephed rine-DM 2 mg-30 mg-10 mg/5 mL oral syrup active Not Available Not Available Not Available naproxen 500 mg tablet TAKE 1 TABLET BY MOUTH TWICE DAILY WITH FOOD active Not Available Not Available No t Available amoxicill in 875 mg-potass ium clavulana te 125 mg tablet 02/15 completed Not Available Not Available Not Available cyclobenz aprine 5 mg tablet 03/21 completed Not Available Not Available Not Available Januvia 100 mg tablet Take 1 tablet every day by oral route for 30 days. 03/21 completed Not Available Not Available Not Available hydrochlo rothiazid e 12.5 mg tablet Take 1 tablet every day by oral route for 90 days. 11/23 completed Not Available Not Available Not Available Restore Wound Cleanser Apply 1 mL 4 times a day by topical route as needed for 30 days. 08/16 completed Not Available Not Available Not Available Easy Touch Test Strip Take 1 strip twice a day by miscell. route for 90 days. 2018 active Not Available Not Available Not Avai lable Invokana 300 mg tablet Take 1 tablet every day by oral route for 30 days. 11/25 completed Not Available Not Available Not Available Farxiga 10 mg tablet TAKE ONE TABLET BY MOUTH EVERY DAY FOR DIABETES 06/28 completed Made pt. BG go unfer 70's and stopped taking. Not Available Not Available Not Available guaifenes in ER 600 mg tablet, extended release 12 hr TAKE 1 TABLET BY MOUTH TWICE DAILY FOR 10 DAYS 03/25 completed Not Available Not Available Not Available Vitals Date Recorded Body height Heart rate Oxygen saturation Oxygen saturation in Arterial blood by Pulse oximetry Body mass index (BMI) Body weight Systolic blood pressure Diastolic blood pressure Provider Name and Address Organization Details Last Updated DateTime 2 165.1 cm 72 /min 98 % 98 % 37.1 kg/m2 349516. 1 g 116 mm[Hg] 62 mm[Hg] Evangelina Casillas MA [facility] 2 14:21:40 Date Recorded Body height Body mass index (BMI) Body weight Heart rate Oxygen saturation Oxygen saturation in Arterial blood by Pulse oximetry Systolic blood pressure Diastolic blood pressure Provider Name and Address Organization Details Last Updated DateTime 3 165.1 cm 38.1 kg/m2 532591. 05 g 74 /min 98 % 98 % 118 mm[Hg] 76 mm[Hg] Aleshia Hooks MA [facility] 3 14:50:43 Date Recorded Body height Body mass index (BMI) Body weight Heart rate Oxygen saturation Oxygen saturation in Arterial blood by Pulse oximetry Systolic blood pressure Diastolic blood pressure Provider Name and Address Organization Details Last Updated DateTime 4 165.1 cm 38.1 kg/m2 184148. 65 g 63 /min 99 % 99 % 122 mm[Hg] 76 mm[Hg] Evangelina Casillas MA [facility] 4 11:54:39 Date Recorded Body height Body mass index (BMI) Body weight Heart rate Oxygen saturation Oxygen saturation in Arterial blood by Pulse oximetry Systolic blood pressure Diastolic blood pressure Provider Name and Address Organization Details Last Updated DateTime 4 165.1 cm 37.1 kg/m2 002436. 1 g 78 /min 98 % 98 % 125 mm[Hg] 78 mm[Hg] Evangelina Casillas MA [facility] 4 16:50:36 Social History Question Answer Notes LastModified by Organizat ion Details LastModified Time Tobacco Smoking Status Never Smoker Roly Karimi MA null, [facility] 03/25/2015 10:55:44 Do You Have An Advance Directive? No Information not available 02/03/2021 What Is Your Level Of Alcohol Consumption? Occasional Information not available 09/29/2021 What Is Your Level Of Caffeine Consumption? Occasional Soda Information not available 11/23/2020 How Much Tobacco Do You Chew? None Information not available 12/29/2020 In The 14 Days Before Symptom Onset, Have You Had Close Contact With A Laboratory-confir med COVID-19 While That Case Was Ill? No Information not available 09/29/2021 In The 14 Days Before Symptom Onset, Have You Had Close Contact With A Person Who Is Under Investigation For COVID-19 While That Person Was Ill? No Information not available 09/29/2021 Have You Been To An Area Known To Be High Risk For COVID-19? No Information not available 02/03/2021 What Type Of Diet Are You Following? REGULAR Information not available 11/23/2020 Which Illicit Or Recreational Drugs Have You Used? N/a Information not available 11/23/2020 Do You Or Have You Ever Used E-cigarettes Or Vape? Never Used Electronic Cigarettes Information not available 02/09/2020 Are There Any Guns Present In Your Home? No Information not available 10/09/2019 Hard Of Hearing Or Deaf In One Or Both Ears? No Information not available 10/09/2019 Legally Blind In One Or Both Eyes? No Information no t available 10/09/2019 Live Alone Or With Others? With Others Information not available 10/09/2019 What Was The Date Of Your Most Recent Tobacco Screening? 11/25/2024 Information not available 11/26/2024 What Is Your Relationship Status? Information not available 02/03/2021 Are You Sexually Active? Yes Information not available 02/03/2021 Do You Have Smoke And Carbon Monoxide Detectors In Your Home? No Information not available 02/03/2021 At What Age Did You Start Smoking Tobacco? 0 N/a Information not available 12/29/2020 Are You Passively Exposed To Smoke? No Information no t available 12/29/2020 Do You Or Have You Ever Used Smokeless Tobacco? Never Used Smokeless Tobacco Information not available 02/09/2020 How Much Tobacco Do You Smoke? No Information not available 10/09/2019 General Stress Level Medium Information not available 02/09/2020 Do You Use Any Illicit Or Recreational Drugs? No Information not available 02/03/2021 Has Tobacco Cessation Counseling Been Provided? No Information not available 02/03/2021 On What Date Was Tobacco Cessation Counseling Provided? 03/24/2024 Information not available 03/24/2024 How Many Years Have You Smoked Tobacco? 0 Information not available 12/29/2020 Do You Or Have You Ever Used Any Other Forms Of Tobacco Or Nicotine? No Information not available 02/03/2021 Sex: Male Functional Status None recorded. Mental Status None recorded. Family History Relationship Description Onset Age of this Age Resolved Age Notes LastModified by Organization Details LastModified Time Sister Diabetes mellitus [email or web address] Not available 02/15 16:47:26 Mother Intracranial tumor [email or web address] Not available 2020 16:04:29 Notes:Brain tumor (mother) Medical History Condition Response Coronary Artery Disease N Other N Atrial Fibrillation N High Blood Pressure N Kidney Stones N Hyperthyroidism N Thyroid Problems N Kidney or Bladder Problems N GI Problems N Depression N COPD N Blood Clots N Hypothyroidism N Skin Problems N Anemia N Heart Attack ([place]) N Anxiety Disorder N Diabetes Y Muscle, Joint, or Bone Problems N Seizures/Epilepsy N Tuberculosis Y Acid Reflux (GERD) Y Hyperlipidemia Y Cancer N Stroke N Asthma N Allergies N Sleep Apnea N GERD/Reflux Y High Cholesterol N Hepatitis N Liver Disease N Heart Disease N Headaches N Hypertension Y Heart Failure N Osteoporosis N Kidney Disease N Immunizations Vaccine Type Date Status Note Provider Nam e and Address Organization Details Recorded Time COVID-19, mRNA, LNP-S, PF, 30 mcg/0.3 mL dose 1 completed DIANA [place] - [facility] 11/24/2024 17:28:39 COVID-19, mRNA, LNP-S, PF, 100 mcg/0.5mL dose or 50 mcg/0.25mL dose 1 completed Not Available [facility] 10/17/2021 02:21:57 pneumococcal polysaccharide PPV23 2 completed DIANA [place] - [facility] 03/22/2022 10:40:10 tetanus toxoid, unspecified formulation 6 completed Not Available [facility] 10/17/2021 02:21:57 Past Encounters Encounter ID Performer Location Encounter Start Date Encounter Closed Date Diagnosis/Indication Diagnosis SNOMED-CT Code Diagnosis ICD10 Code Diagnosis Note [id number] MD Gia Ortiz (Adult Med) [address] [place] [id number] 03/25/2015 10:38:48 04/01/2015 11:08:20 Urinary incontinence 866464225 Morbid obesity 255570777 Left sided abdominal pain 112206423 [id number] MD Gia Ortiz (Adult Med) [address] [place] [id number] 0 12/28/2015 15:53:31 12/28/2015 18:10:19 [id number] MD Gia Ortiz (Adult Med) [address] [place] [id number] 0 02/08/2016 10:15:07 02/08/2016 18:01:09 Morbid obesity 186753986 E66.01 Active or passive immunization 305621103 Z23 [id number] MD Gia Ortiz (Adult Med) [address] [place] [id number] 0 02/15/2017 16:24:21 02/15/2017 17:38:48 Type 2 diabetes mellitus 18890995 E11.638 Diet. excercise, keeps the weight down. he agreed. Hold off the tradjenta, keep the daily sugar diary. 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 Pain of wrist region 566 [address]5634 M25.068 [id number] CELIA CHANDRA [facility] [address] [place] [address] 10/09/2019 09:55:19 10/09/2019 12:35:56 Elevated blood-pressure reading without diagnosis of hypertension 592618930 R03.0 Patient presents today with high blood pressure, 156/90 . He has never been told that his blood pressure is high before. On chart review he has one other reading that is high. We discussed if he loses weight, adheres to DM diet he may return to a normal BP. - checking labs- Goal <140/90- He is to take BP at home or pharmacy and he is returning in one month for BP check- if BP continues to be elevated I will likely start on lisinopril for BP and kidney protection - DASH diet- excercise 30 mins 5x week Prediabetes 922699976 R7 3.03 Patient has had increased urination and thirst. A1C today is 7.7. Patient notified that he diabetic. We discussed diet and excercise. He is eating 12-16 small tortillas/ day along with rice. He sometimes drinks soda. He is to start metformin. Start checking fastin sugars and sugars 1-2 hours after meals. fasting goal <130, 1-2 hours after meal <180 - Start metformin 500 mg 2x day. Take once per day for first week to reduce GI side effects, he is aware he may experience some diarrhea.- diabetic diet- avoiding tortillas, pasta, rice, sweets, soda.- excercise 30 mins 5 x week. He walks all day at job 5-6pm so we discussed him walking a little faster at work when he has the chance. getting fitbit to track steps.- start checking feet- opthalmolo gy appointmen t for dm check- getting CR/ALB URINE AT NEXT VISIT- DM foot exam at next visit- F/U in one month to review blood sugar checks Stuttering [id number] F80. 80 patient has stuttering speech when he gets nervous. Would like to see therapy as he gets very embarrasse d for this. His kids also have it. - speech referral [id number] CELIA CHANDRA [facility] [address] [place] [address] 11/05/2019 15:00:34 11/10/2019 09:31:24 Elevated blood-pressure reading without diagnosis of hypertension [id number] R03.0 BP 124/70, WNNL. states BP has been in 160's systolic at home. We discussed if he loses weight, adheres to DM diet he may return to a normal BP.- Goal <140/90- He is to take BP at home or pharmacy and he is returning in one month for BP check- if BP continues to be elevated I will likely start on lisinopril for BP and kidney protection - DASH diet- excercise 30 mins 5x week Type 2 dhaval maribeles mellitus [id number] E11.9 Patient has had increased urination and thirst. Last A1C is 7.7. We discussed diet and excercise. He has cut down on tortillas. He cut out regular soda. tolerating metformin. He is to start checking fastin sugars and sugars 1-2 hours after meals. He was doing random sugars. Most sugars were in 120-140 range. Glucose today is 132. fasting goal <130, 1-2 hours after meal <180 - Checked feet on exam today, normal- CONTINUE metformin 500 mg 2x day.- diabetic diet- avoiding tortillas, pasta, rice, sweets, soda.- excercise 30 mins 5 x week. He walks all day at job 5-6pm so we discussed him walking a little faster at work when he has the chance. getting fitbit to track steps.- checking feet- opthalmolo gy appointmen t for dm check- CR.alb at this visit- F/U in two months for A1C Obesity 463917992 E66.9 discussed diet. He has cut down on carbs and sugary drinks. above diet and excercise plan is discussed. [id number] CELIA CHANDRA [facility] [address] [place] [address] 01/12/2020 15:59:08 01/13/2020 10:18:12 Type 2 diabetes mellitus 38496523 E11.9 A1C IMPROVED TO 6.9 from Last A1C is 7.7. We discussed diet and excercise. He was been doing random sugars. Most sugars were in 120-140 range. Glucose today is 132. fasting goal <130, 1-2 hours after meal <180 - Checked feet at last visit- alb/cr ratio normal on 11/05/19- lipid panel abnormal october 2019. He has started atorvastat in 20mg- CONTINUE metformin 500 mg 2x day.- diabetic diet- avoiding tortillas, pasta, rice, sweets, soda.- excercise 30 mins 5 x week. He walks all day at job 5-6pm so we discussed him walking a little faster at work when he has the chance. getting fitbit to track steps.- opthalmolo gy appointmen t for dm check- F/U 6 months Onychomyco sis of toenails [id number] B35.1 abnormal toe nails. thickened and discolored . Starting terbinafin e. base liver function WNL. Will check again mid way through treatment. - terbinafin e 250 mg qd x 3 months- liver enzymes will be checked custodial through Headache 15799985 R51 two months of headache almost daily. similar to previous headache. start in the morning and gets worse through the day. MAXWELL not affected by light or sound. Changes in last two weeks is cutting out soda. caffeine may be affecting his headaches. He is supposed to wear glasses but has not checked eyes in three years. Mom with brain tumor, does not know what type. ruling out other factors but next step would be head CT. 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 will send again. abnormal toe nails. thickened and discolored . Starting terbinafin e. base liver function WNL. Will check again mid way through treatment. - terbinafin e 250 mg qd x 3 months- liver enzymes will be checked custodial through Type 2 dhaval betes mellitus 60684367 E11.9 A1C IMPROVED TO 6.9 from Last A1C is 7.7. We discussed diet and excercise. He was been doing random sugars. Most sugars were in 120-140 range. Glucose today is 132. fasting goal <130, 1-2 hours after meal <180 - Checked feet at last visit- alb/cr ratio normal on 11/05/19- lipid panel abnormal october 2019. He has started atorvastat in 20mg- increase metformin 500 mg 3x day.- diabetic diet- avoiding tortillas, pasta, rice, sweets, soda.- excercise 30 mins 5 x week. He walks all day at job 5-6pm so we discussed him walking a little faster at work when he has the chance. getting fitbit to track steps.- opthalmocorey woods appointmen t for dm check- F/U 6 months Essential hypertension 49429741 I10 Patient having elevated BP at [facility] e ranging 14-150/90- 98. BP elevated today. Adding lisinopril . 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 will send again. abnormal toe nails. thickened and discolored . Starting terbinafin e. base liver function WNL. Will check again mid way through treatment. - terbinafin e 250 mg qd x 3 months- liver enzymes will be checked custodial through Essential hypertension 40234321 I10 Patient has been running around 120/75 Once starting lisinopril 10- hcz 12.5. He no longer has headaches. He is feeling much better, adhering well to medication and reports no side effects. continue medication Advised to check BP regularly with a goal of <140/90, if BP consistent ly >140/90, advised to contact clinic Discussed DASH diet Advised weight loss and diet is best way to control BP Advised 30 minutes of exercise minimum daily Advised tobacco, alcohol, caffeine all increase BP Advised goal for BP is <140/90 [id number] CELIA CHANDRA [facility] [address] [place] [address] 11/23/2020 09:00:31 11/25/2020 14:06:20 Essential hypertension 29951782 I10 Patient has been running around 120/75 Once starting lisinopril 10- hcz 12.5. He no longer has headaches. He is feeling much better, adhering well to medication and reports no side effects. continue medication Advised to check BP regularly with a goal of <140/90, if BP consistent ly >140/90, advised to contact clinic Discussed DASH diet Advised weight loss and diet is best way to control BP Advised 30 minutes of exercise minimum daily Advised tobacco, alcohol, caffeine all increase BP Advised goal for BP is <140/90 Type 2 dhaval que mellitus 03039937 E11.9 A1C IMPROVED TO 6.9 from Last A1C is 7.7. We discussed diet and excercise. He was been doing random sugars. Most sugars were in 120-140 range. Glucose today is 132. fasting goal <130, 1-2 hours after meal <180 - Checked feet at last visit- alb/cr ratio normal on 11/05/19- lipid panel abnormal october 2019. He has started atorvastat in 20mg- CONTINUE metformin 500 mg 2x day.- diabetic diet- avoiding tortillas, pasta, rice, sweets, soda.- excercise 30 mins 5 x week. He walks all day at job 5-6pm so we discussed him walking a little faster at work when he has the chance. getting fitbit to track steps.- opthalmolo gy appointmen t for dm check- F/U 6 months [id number] CELIA CHANDRA [facility] [address] [place] [address] 12/29/2020 13:56:10 12/31/2020 11:27:51 Diabetes mellitus 12111283 E11.9 A1C worsened from 6.9 to 8.7. We discussed diet and excercise. He was been doing random sugars. Most sugars were in 200's until changing dose. states he has been much better for the last couple weeks. Glucose today is 132. Will continue monitoring medication regiment: we increased metformin to 1000 mg bid fasting goal <130, 1-2 hours after meal <180 - Checked feet today, onychomyco sis of nails. normal monofilame nt test. - alb/cr ratio normal on 11/05/19 - lipid panel abnormal october 2019. He has started atorvastat in 20mg- diabetic diet- avoiding tortillas, pasta, rice, sweets, soda. - excercise 30 mins 5 x week. - opthalmolo gy appointmen t for dm check - F/U 6 months Intolerant of cold 63290 000 R68.89 Patient complains of dry feet, feeling cold Onychomyco sis of toenails 574851899 B35.1 Patient ahs bilateral onychomyco sis. Will check LFT before initiating treatment. - terbinafin e 250 mg qd x 3 months- liver enzymes will be checked custodial through Goiter 3827460 E04.9 Patient complains of throat pain and on exam has enlarged thyroid. Will obtain US. Difficulty swallowing 28 7010814 R13.10 Patient with history of acid reflux presents complainin g of progressiv e trouble swallowing and occasional pain. Sometimes hard to swallow his saliva. Normal exam. Will obtain EGD [id number] WINNIE QUEZADA NP [facility] [address] [place] [address] 01/18/2021 16:00:19 01/19/2021 09:03:06 Diabetes mellitus 72294194 E11.9 12/29/2020 A1C: 8.7%Manage d in primary care Body mass index 30+ - obesity 441698514 Z68.39 Encouraged weight loss -Choosing low-fat, low-calori e foods -Eating smaller portions -Drinking water instead of sugary drinks -Being physically active Essential hypertension 56705173 I10 Managed in primary care Hyperlipidemia 41954166 E78.5 Managed in primary care Gastroesop hageal reflux disease 551393668 K21.9 Taking omeprazole OTC without consistent relief Skin lesion 88524340 L98 .9 Pigmented lesion, irregular borders, enlarging, right lower abdomen [id number] CELIA CHANDRA [facility] [address] [place] [address] 02/03/2021 08:03:39 02/04/2021 12:29:02 Diabetes mellitus 22995210 E11.9 A1C worsened from 6.9 to 8.7. We discussed diet and excercise. He was been doing random sugars. Most sugars were in 200's until changing dose. states he has been much better for the last couple weeks. Glucose today is 132. Will continue monitoring medication regiment: we increased metformin to 1000 mg bid fasting goal <130, 1-2 hours after meal <180 - Checked feet today, onychomyco sis of nails. normal monofilame nt test. - alb/cr ratio normal on 11/05/19 - lipid panel abnormal october 2019. He has started atorvastat in 20mg- diabetic diet- avoiding tortillas, pasta, rice, sweets, soda. - excercise 30 mins 5 x week. - opthalmolo gy appointmen t for dm check - F/U 6 months Difficulty swallowing 28 4830614 R13.10 Patient with history of acid reflux presents complainin g of progressiv e trouble swallowing and occasional pain. Sometimes hard to swallow his saliva. Normal exam. Will obtain EGD Headache 57911271 R51.9 two weeks of headache almost daily. similar to previous headache. start in the morning and gets worse through the day. MAXWELL not affected by light or sound. Changes in last two weeks is cutting out soda. caffeine may be affecting his headaches. He is supposed to wear glasses but has not checked eyes in three years. Mom with brain tumor, does not know what type. ruling out other factors but next step would be head CT. will start with eye exam. - get vision exam- take excedrin as it is helping- monitor sugar and BP when MAXWELL sets in- f/u in one month [id number] Rasheed Barrientos MD [facility] ([facility]) [address] [place] [address] 03/09/2021 15:54:18 03/10/2021 09:35:39 Neoplasm of uncertain behavior of skin 35307090 D48.5 Pigmented Lesion, Rule Out Atypia [id number] CELIA CHANDRA [facility] [address] [place] [address] 05/05/2021 12:05:05 05/07/2021 08:46:42 Ingrowing nail of toe of left foot [id number] 7731706 L60.0 b/l ingrown first toe nails , swelling, localized erythema. left side has some driange. - abx - podiatry to fix problem - keep area clean [id number] Anil Saldana DPM [facility] [address] [place] [address] 05/24/2021 15:29:36 05/25/2021 11:55:21 Ingrowing nail of toe of right foot 4877206446 7978311 L60.0 Ingrowing nail of toe of left foot 9835496026 4678199 L60.0 Ingrowing nail 303689626 L60.0 [id number] Anil Saldana DPM [facility] ts [address] [place] [address] 07/07/2021 09:54:47 07/13/2021 08:13:09 Ingrowing toenail 292043513 L60.0 [id number] CELIA CHANDRA [facility] [address] [place] [address] 09/29/2021 15:52:37 09/30/2021 12:26:04 Essential hypertension 58997045 I10 BP today 138/70, wnl. doing well on lisinopril 10- hcz 12.5. He no longer has headaches. He is feeling much better, adhering well to medication and reports no side effects. medication regiment: lisinopril 10- hcz 12.5.yesika nue medication Advised to check BP regularly with a goal of <140/90, if BP consistent ly >140/90, advised to contact clinic Discussed DASH diet Advised weight loss and diet is best way to control BP Advised 30 minutes of exercise minimum daily Advised tobacco, alcohol, caffeine all increase BP Advised goal for BP is <140/90 Diabetes mellitus 628818 09 E11.9 A1C worsened from 6.9 to 8.7 on last visit. Will obtain labs today. We discussed diet and exercise. At home sugars [id number] 0's. He never picked up Jardiance. medication regiment: we increased metformin to 1000 mg bid, januvia 100mg (he never started), Atorvastas tin 20mg fasting goal <130, 1-2 hours after meal <180 - sees supervisor powdered metal - Goal LDL <70- alb/cr ratio normal on 05/07/21 - diabetic diet- avoiding tortillas, pasta, rice, sweets, soda. - exercise 30 mins 5 x week. - opthamolog y appointmen t for dm check - F/U 6 months Body mass index 30+ - obesity 763734609 Z68.39 has not adhered to any diet. no weight gain since last visit. Hyperlipidemia 49999138 E78.5 labsrefill [id number] CELIA CHANDRA [facility] [address] [place] [address] 03/21/2022 11:18:36 03/22/2022 10:26:15 Diabetes mellitus 78336878 E11.9 A1C worsened from 6.9 to 8.7 to 9.3 today. on last visit. non-compla int with diet or his medication s. Will obtain labs today. We discussed diet and exercise. At home sugars [id number] 0's. He never picked up Jardiance. celestino dd on farxiga today. He agrees to start. discussed adherence. medication regiment: we increased metformin to 1000 mg bid, farxiga, Atorvastas tin 20mg fasting goal <130, 1-2 hours after meal <[id number] : left before he got it. obtain at next visitfoot exam: sees supervisor powdered metal Goal LDL <70, non-compli ant with statin alb/cr ratio normal on 05/07/21ey e exam: they called him but they never scheduled. given order today Benign pro static hyperplasia 840626080 N40.0 Increased frequency of urination 919631271 R35.0 states he goes t bathroom more often. could be due to DM. States his stream breaks up in two. his son was born with hypospadia . Obesity 419952389 E66.9 discussed diet. He has cut down on carbs and sugary drinks. above diet and excercise plan is discussed. [id number] CELIA CHANDRA [facility] [address] [place] [address] 06/28/2022 13:57:29 06/29/2022 09:52:27 Diabetes mellitus 29755774 E11.9 patient with 12 lb weight loss with diet and staying active. stopped farxiga as BG controlled on metformin. recheck a1c today. Patient encouraged to keep up the good work. A1C 9.3 (02/2022), 8.4 09/2022 medication regiment: we increased metformin to 1000 mg bid, , atorvastat in 20mg fasting goal <130, 1-2 hours after meal <[id number] : 03/22/2022f oot exam: sees supervisor powdered metal Goal LDL <70, non-compli ant with statin alb/cr ratio normal on 03/21/22ey e exam: they called him but they never scheduled. given order today Obesity 189009677 E66.9 discussed diet. He has cut down on carbs and sugary drinks. diet and exercise plan is discussed and encouraged to keep up the good work. Hyperlipidemia 08060440 E78.5 refill Liver enzy mes level above reference range 972219655 R74.01 recheck to monitor HIV screening 055665219 Z11.4 screen [id number] CELIA CHANDRA [facility] [address] [place] [address] 05/01/2023 14:44:57 05/01/2023 15:25:25 Diabetes mellitus 74027839 E11.9 doing well with all medication s. adhering to DM diet. I feel great. A1C 7.2% 05/01/23) 9.3 (02/2022), 8.4% (09/2022) medication regiment: metformin to 1000 mg bid, , atorvastat in 20mg ppsv23: 03/22/2022f oot exam:mild nail changes. normal monofilame nt exam.stati n: complainta lb/cr ratio normal on 03/21/22ey e exam: they called him but they never scheduled. given order today Pain in coccyx 00229436 M53.3 Hyperlipidemia 21193435 E78.5 refill [id number] CELIA CHANDRA [facility] [address] [place] [address] 03/24/2024 11:46:55 03/24/2024 12:34:38 Diabetes mellitus 52280030 E11.9 Endorses medication compliance . Reports not doing anything in particular to help his DM. Reports eating more, alex 7 tortillas/ day. Advised wrapping his food in lettuce instead of tortilla. Advised a walk after eating. medication regiment: metformin to 1000 bid, atorvastat in 20mg A1C 7.2%( 05/01/23) 9.3 (02/2022), 8.4% (09/2022) Foot exam: no neuropathy notedEye Exam: referred to quantumAlb /Cr: OrderedSta tin: recently provided refillACEi : Will continuepn eumonia vaccine: 03/22/2022 Obesity 854362062 E66.9 bmi 38.1discus sed diet. Encouraged less carbs and less salt. Screening for malignant neoplasm of prostate 604688520 Z12.5 Essential hypertension 01928721 I10 BP today 122/76, wnl. doing well on lisinopril 10mg. medication regiment: lisinopril 10mgcontin ue medication Advised to check BP regularly with a goal of <120/80, if BP consistent ly >140/90, advised to contact clinic Discussed lowering carb intake Advised weight loss and low-sodium diet is best way to control BP Advised 30 minutes of exercise minimum daily. Advised walking after meals. Advised tobacco, alcohol, caffeine all increase BP [id number] Mayito Blanco MD [facility] [address] [place] [address] 11/25/2024 16:45:20 11/27/2024 12:17:54 Adult health examination 751130054 Z00.00 - cut back on tortillas- cut back on alcohol- obtain labs- colon screen- due for dm eye exam- refuses flu shot Screening for malignant neoplasm of colon 378201207 Z12.11 Obesity 142389963 E66.9 bmi 37.1discus sed diet. Encouraged less carbs and less salt. [id number] Mayito Blanco MD [facility] [address] [place] [address] 11/27/2024 09:37:36 11/28/2024 15:29:10 Health Concerns Section Related Observation LastModified by Organization Detai ls LastModified Time None Recorded Concern Status LastModified by Organization Details LastModified Time None Recorded Advance Directives Directive N: Payers Encounter Date Sequence Insurance Name Policy Number Policy Conner Covered Member ID Conner Member ID Guarantor Name 06/28/2022 1 *SELF PAY* Jossue Morataya ndon 05/01/2023 1 [place] [id number] Silvestre Del Rosario [id number] Silvestre Morataya ndon 03/24/2024 1 [place] [id number] Silvestre Del Rosario [id number] Silvestre Morataya ndon 11/25/2024 1 [place] [id number] Silvestre Del Rosario [id number] Silvestre Morataya ndon 11/27/2024 1 [place] [id number] Silvestre Del Rosario [id number] Silvestre Morataya ndon Notes Date Note Type Note Provider Name and Address Organization Details Recorded Time 06/28/2022 text/html DiabetesReported bypatient.Review finger sticks:fastin; post lunch: 140 Duration:chronic Control:improved since last visit; normal range of home blood sugars (in the low 100s); treated with diet and oral medications; hemoglobin A1C has been 8-9; hemoglobin A1C goal is less than 7 Compliance:compliant with medications; compliant with follow-up visits; compliant with diet; compliant with home glucose monitoring Self Care:monitoring glucose daily; checking feet regularly;not seeing eye doctor yearly Associated Symptoms:no weight gain; no weight loss; no dizziness; no sweats; no headaches; no confusion Silvestre is a 41 YO HM pmhxz DM, HYPERLIPIDEMIA, HTN presents with for f/u on DM BG controlled <140. He stopped farxiga due to numbers in 70's. He has been complaint with all medications and diet. lost 15 lbs. need refills. has not done eye exam. denies dizziness, edema, cahnge in speech, vomiting, cp. CELIA CHANDRA Attn: Accounting,[address] [facility], [place], [address], [facility] 06/28/2022 15:10:58 05/01/2023 text/html DiabetesReported bypatient.Review finger sticks:fastin; post lunch: 140 Duration:chronic Control:improved since last visit; normal range of home blood sugars (in the low 100s); treated with diet and oral medications; hemoglobin A1C has been 8-9; hemoglobin A1C goal is less than 7 Compliance:compliant with medications; compliant with follow-up visits; compliant with diet; compliant with home glucose monitoring Self Care:monitoring glucose daily; checking feet regularly;not seeing eye doctor yearly Associated Symptoms:no weight gain; no weight loss; no dizziness; no sweats; no headaches; no confusion Silvestre is a 42 YO HM pmhxz DM, HYPERLIPIDEMIA, HTN presents with for f/u on DM needs refills BG controlled <140. He has been complaint with all medications and diet. stopped drinking beer and sodas. I feel great. Has not seen eye doctor still He did have work injury after falling at work and breaking his tailbone. He sees workman's compensation doctor on May 09. Needs light duty extended until this time. denies dizziness, edema, cp, sob, tingling, numbness, feet pain Carina Condon CMA [facility] [place] [facility] [place] 05/01/2023 15:24:51 03/24/2024 text/html Reports making n o changes to help DM. Reports eating a bit more. Reports a stressful episode when also his L arm and L leg get tight and almost hurts; says this happens when his BP gets high. Reports medication compliance. denies cp, sob, palpitations, headache CELIA CHANDRA Attn: Accounting,[address] [facility], [place], [address], [facility] 03/24/2024 16:33:29 11/25/2024 text/html Silvestre is a 44 Y O M here with two daughters for wellness He does not check BG. eats 10-12 tortillas at dinner. drinks 12 beers on weekends. not exercising. colon screen: due, agrees to colonoscopy. denies fam hx of colon cancer. CELIA CHANDRA Attn: Accounting,[address] [facility], [place], [address], [facility] 11/26/2024 11:52:28
--- OUTSIDE RECORDS SUMMARY | 2025-03-25 11:18 | XMS_ITS | Clinical Summary ---
Author Organization [facility] Address [facility] [place] [address] Care Team Providers Care Branch Administrator Name Role Phone None, Provider MD Primary Care Provider Unavaila ble Allergies No known active allergies Medications famotidine 20 MG tablet Take 1 tablet (20 mg total) by mouth 2 (two) times daily. 30 tablet 9 Active ondansetron 4 MG disintegrating tablet Take 1 tablet (4 mg total) by mouth every 8 (eight) hours as needed for Nausea. 20 tablet 9 Active sucralfate 1 G tablet Take 1 tablet (1 g total) by mouth 4 (four) times daily. 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 Gender Identity Not on file Sexual Orientation Not on file Last Filed Vital Signs Vital Sign Reading Time Taken Comments Blood Pressure 137/87 12/07/2018 1:15 PM PLAYGROUND SUPERVISOR Pulse 55 12/07/2018 11:30 AM PLAYGROUND SUPERVISOR Temperature 36.7 C (98.1 F) 12/07/2018 10:14 AM PLAYGROUND SUPERVISOR Respiratory Rate 18 12/07/2018 1:15 PM PLAYGROUND SUPERVISOR Oxygen Saturation 96% 12/07/2018 1:15 PM PLAYGROUND SUPERVISOR Inhaled Oxygen Concentration - - Weight 109.5 kg (241 lb 6 oz) 12/07/2018 10:14 A M PLAYGROUND SUPERVISOR Height 165.1 cm (5' 5 ) 12/07/2018 10:14 AM PLAYGROUND SUPERVISOR Body Mass Index 40.17 12/07/2018 10:14 AM PLAYGROUND SUPERVISOR Plan of Treatment Health Maintenance Due Date Last Done Comments Colorectal Cancer Screening Colonoscopy (10 Years) 1979 Annual Physical 1982 Hepatitis C 1997 DTaP, Tdap and Td Vaccines ( 1 - Tdap) 1998 Hepatitis B Vaccines (1 of 3 - 19+ 3-dose series) 1998 COVID-19 Vaccine (2023-2 5 season) 2024 HPV Vaccines Aged Out No longer eligi ble based on patient's age to complete this topic Meningococcal B Vaccine Aged Out No l onger eligible based on patient's age to complete this topic Meningococcal Vaccine Aged Out No alee lavern eligible based on patient's age to complete this topic Pneumococcal Vaccine: Pediat rics (0 to 5 Years) and At-Risk Patients (6 to 49 Years) Aged Out No longer eligible b ased on patient's age to complete this topic RSV Immunizations Under 20 Months Aged Out No longer eligible based on patient's age to complete this topic Care Teams Branch Administrator Relationship Specialty Start Date End Date None, Provider, PCP - General 12/07/18
[2025-03-25] MEDS: KETOROLAC (*BKC) 60 MG/2 ML VIAL IM (11:48)
--- NOTE | 2025-03-25 11:53 | ED_ITS ---
HPI - Ear Problem General Chief complaint: Ear Stated complaint: right ear injury Time Seen by Provider: 03/25/25 10:52 History of Present Illness HPI Narrative: Patient is a 44-year-old male who presents to the ER following an injury to his right ear. He reports he was carrying furniture when it slipped and bumped into his R face. Patient endorses a lot of bleeding from a cut on his ear. He denies any mastoid tenderness, neck stiffness, loss of consciousness, headache, or facial bone tenderness. Patient sources a history of high blood pressure and diabetes but both are well-controlled with medication. Related Data Home Medications ?Medication ?Instructions ?Recorded ?Confirmed ?Last Taken ?Type atorvastatin 20 mg tablet 11/20/19 Unknown History metformin 500 mg tablet mg 11/20/19 Unknown History lisinopril 10 mg tablet mg 11/20/23 11/20/23 Unknown History Allergies Allergy/AdvReac Type Severity Reaction Status Date / Time No Known Allergies Allergy Verified 11/20/23 14:43 Review of Systems Review of Systems: All systems reviewed & are unremarkable except as noted in HPI and below PMFSH Past Medical History Medical History Diabetes Hyperlipidemia Exam Narrative: GENERAL: Well appearing, well-nourished, non-toxic, in no acute distress. HEAD: Normocephalic, 1 cm linear laceration to pt's R lower ear lobe-well approximated, bleeding controlled, 2-3 scratches around pt's R ear, tender with palpation, no blood coming from inner ear NECK: Supple. No adenopathy, no masses. RESPIRATORY: Airway patent, respirations nonlabored. Clear to auscultation bilaterally, no rales, rhonchi, wheezing. CARDIOVASCULAR: Regular rate and rhythm without murmurs, rubs, or gallops. Peripheral pulses 2+ and equal bilaterally. ABDOMINAL: Soft, nontender, nondistended, no hepatosplenomegaly. Normoactive BS. MUSCULOSKELETAL: Moves all extremities. Strength/ROM intact without gross deformities. SKIN: Warm, dry, normal color. No rashes. NEURO: A&O X3. Speech clear. Cranial nerves II-XII intact. No ataxic movements. PSYCHIATRIC: Appropriate mood and affect. Normal interaction. Course Vital Signs Vital signs: Vital Signs Temperature 36.8 C 04/30/25 10:13 Pulse Rate 59 L 03/25/25 10:13 Respiratory Rate 18 03/25/25 10:13 Blood Pressure 149/84 H 03/25/25 10:13 Pulse Oximetry 98 03/25/25 10:13 Oxygen Delivery Room Air 03/25/25 10:13 Temperature 36.8 C 03/25/25 10:13 Pulse Rate 59 L 03/25/25 10:13 Respiratory Rate 18 03/25/25 10:13 Blood Pressure 149/84 H 03/25/25 10:13 Pulse Oximetry 98 03/25/25 10:13 Oxygen Delivery Room Air 03/25/25 10:13 Medical Decision Making MDM Narrative Medical decision making narrative: Patient is a 44-year-old male who presents to the ER following an injury to his right ear. He reports he was carrying furniture when it slipped and bumped into his R face. Patient endorses a lot of bleeding from a cut on his ear. He denies any mastoid tenderness, neck stiffness, loss of consciousness, headache, or facial bone tenderness. Patient sources a history of high blood pressure and diabetes but both are well-controlled with medication. Imaging Ordered: None necessary (patient did not lose consciousness, has not had any episodes of vomiting, no altered mental status) Medications Ordered: Toradol 60 mg IM Diagnosis: Right ear laceration Patient Education/Shared MDM: Results of examination shared with patient. He endorses improvement following medication administration. Patient strongly advised to follow-up with his PCP as necessary. He will be discharged home with no new prescriptions. Strict return precautions provided. Patient verbalized understanding and is in agreement with plan. Vital signs stable at time of discharge. All questions answered. Differential Diagnosis Differential Diagnosis: Right ear laceration, concussion without loss of consciousness, tympanic membran e injury, right ear canal injury Vital Signs Vital Signs: Vital Signs Temperature 36.8 C 03/25/25 10:13 Pulse Rate 59 L 03/25/25 10:13 Respiratory Rate 18 03/25/25 10:13 Blood Pressure 149/84 H 03/25/25 10:13 Pulse Oximetry 98 03/25/25 10:13 Oxygen Delivery Room Air 03/25/25 10:13 Temperature 36.8 C 03/25/25 10:13 Pulse Rate 59 L 03/25/25 10:13 Respiratory Rate 18 03/25/25 10:13 Blood Pressure 149/84 H 03/25/25 10:13 Pulse Oximetry 98 03/25/25 10:13 Oxygen Delivery Room Air 03/25/25 10:13 Discharge Plan Discharge Clinical Impression: Laceration of ear, Abrasion of ear, Concussion Patient Disposition: Home Condition: Stable Instructions: Antibiotic Form, Concussion (ED), Ear Abrasion (ED) Additional Instructions: Please return to the ER with any worsening symptoms. Follow-up with primary care provider as soon as possible. Take all regularly scheduled medications. You may use Tylenol and ibuprofen together for pain control. Please allow soapy water to run over the site, but do not scrub it. You may also place bacitracin/antibiotic ointment to the site 2 times a day. Patient Language: Upper Sorbian Prescriptions: No Action metformin 500 mg tablet atorvastatin 20 mg tablet lisinopril 10 mg tablet azithromycin 250 mg tablet See Rx Instructions .ROUTE .COMPLEX Qty: 6 0RF Rx Instructions: For 250 mg dose pack: take 500 mg today (day 1), then 250 mg for 4 days (days 2-5) benzonatate 200 mg capsule 200 mg PO TID PRN (Reason: cough) Qty: 20 0RF guaifenesin [Mucinex] 600 mg tablet extended release 12hr 600 mg PO BID 10 Days Qty: 20 0RF Follow-up/Referrals: Rocío,CELIA Braun [Primary Care Provider] - Stand Alone Forms: Work/School Release IP Time of Disposition: 12:06
[2025-03-25] MEDS: TETANUS,DIPHTHERIA,AC PERTUSSIS ADULT (0.5 ML) BOOSTRIX IM (12:16)
--- OUTSIDE RECORDS SUMMARY | 2025-03-25 12:20 | XMS_ITS | Clinical Summary ---
Author Organization [facility] Address [facility] [place] [address] Care Team Providers Care Auditor Internal Name Role Phone None, Provider MD Primary [...] on file Legal Sex Male 10:12 AM CHALK CUTTER Gender Identity Not on file Sexual Orientation Not on file Last Filed Vital Signs Vital Sign Reading Time Taken Comments Blood Pressure 137/87 12/07/2018 1:15 PM CHALK CUTTER Pulse 55 12/07/2018 11:30 AM CHALK CUTTER Temperature 36.7 C (98.1 F) 12/07/2018 10:14 AM CHALK CUTTER Respiratory Rate 18 12/07/2018 1:15 PM CHALK CUTTER Oxygen Saturation 96% 12/07/2018 1:15 PM CHALK CUTTER Inhaled Oxygen Concentration - - Weight 109.5 kg (241 lb 6 oz) 12/07/2018 10:14 A M CHALK CUTTER Height 165.1 cm (5' 5 ) 12/07/2018 10:14 AM CHALK CUTTER Body Mass Index 40.17 12/07/2018 10:14 AM CHALK CUTTER Plan of Treatment Health Maintenance Due Date [...] age to complete this topic Care Teams Auditor Internal Relationship Specialty Start Date End Date None, Provider, PCP - General 12/07/18
[2025-03-25 12:21] VITALS: BP 138/79; PULSE 68; RESP 16; TEMP 36.4; O2SAT 97
== END 2025-03-25 12:22 | disposition home or self-care (01) ==
PROVIDERS: Emergency Provider Registered Nurse; PCP Physician Assistant
DX: S06.0X0A Concussion without loss of consciousness, initial encounter (principal); S01.311A Laceration without foreign body of right ear, initial encounter; Z23 Encounter for immunization; E11.9 Type 2 diabetes mellitus without complications; E78.5 Hyperlipidemia, unspecified; I10 Essential (primary) hypertension; Z79.899 Other long term (current) drug therapy; Z79.84 Long term (current) use of oral hypoglycemic drugs; W22.8XXA Striking against or struck by other objects, initial encounter
CPT/HCPCS: 90471; 90715; 96372; 99283; J1885